=== PATIENT | male | born 1940 | race Caucasian/White ===

== ENCOUNTER 2018-09-03 15:29 | Outpatient (CLI) | payer MEDICARE ==
[~2018-09-03] VITALS: Ht 177.8 cm; Wt 91.2 kg
[2018-09-03 16:14] VITALS: BP 130/75
[2018-09-04] MEDS ORDERED: CARV6.252 PO (09:17)
[2018-09-04] MEDS ORDERED: ACET-2267 PO (09:17)
[2018-09-04] MEDS ORDERED: ASPI-586 PO (09:17)
[2018-09-04] MEDS ORDERED: METF-397 PO (09:17)
[2018-09-04] MEDS ORDERED: HYDR-3820 PO (09:17)
[2018-09-04] MEDS ORDERED: DIPH-639 PO (09:17)
== END 2018-09-03 16:15 | disposition home or self-care (01) ==
LOC: PREOP 15:29
PROVIDERS: ATTEND Urology
DX: Z01.818 Encounter for other preprocedural examination (principal)
CPT/HCPCS: 87081

== ENCOUNTER → 2018-09-03 | Outpatient (CLI) | payer MEDICARE ==
[~2018-09-03] MED LIST: ACET-2267 PO; ASPI-586 PO; CARV6.252 PO; DIPH-639 PO; HYDR-3820 PO; METF-397 PO
--- NOTE | 2018-09-03 13:47 | Diagnostic Imaging Report ---
PROCEDURE: CT urinary tract, rule out kidney stone. TECHNIQUE: Multiple contiguous axial images were obtained through the abdomen and pelvis without the use of intravenous contrast. Auto Exposure Controls were utilized during the CT exam to meet ALARA standards for radiation dose reduction. INDICATION: Renal stones. COMPARISON: No prior studies are available for comparison. FINDINGS: Imaging through the lung bases does show an area of parenchymal density adjacent to the descending aorta in the left lower lobe. This density measures 18 mm x 23 mm. Otherwise, the lungs are clear. No discrete liver mass is seen. Gallbladder is surgically absent. There is no biliary ductal dilatation identified. The pancreas and spleen are unremarkable. No adrenal mass is seen. There are numerous nonobstructing calculi throughout both kidneys. There also appear to be renal vascular calcifications present bilaterally. No significant hydronephrosis is seen. Right ureter is normal caliber. There does appear to be a calculus located in the distal left ureter just above the UVJ measuring 4 mm. No significant hydroureter is seen. No bladder calculi are detected. Aorta and iliac vessels are heavily calcified but nonaneurysmal. Bowel loops are normal caliber. There is no ascites. There is some diverticulosis of the sigmoid but no acute diverticulitis. The prostate is enlarged and contains some calcifications. Bony structures are nonacute. IMPRESSION: 1. Soft tissue density in the left lower lobe adjacent to the descending thoracic aorta. While this may represent an area of infiltrate/atelectasis, possibility of a mass cannot be entirely excluded. Close follow-up after a course of therapy would be useful to confirm stability or clearing. If this does not resolve, PET scan may be useful for further characterization. 2. Bilateral nonobstructing nephrolithiasis. In addition, there appears to be a 4 mm calculus in the distal left ureter just above the UVJ. No significant hydroureter is seen. 3. Uncomplicated diverticulosis. 4. Prostatomegaly. Dictated by: Dictated on workstation # [id number]
--- NOTE | 2018-09-03 13:51 | Diagnostic Imaging Report ---
INDICATION: Left-sided stone. TIME OF EXAM: 01:37 p.m. COMPARISON: No prior studies are available for comparison. FINDINGS: There are numerous calcific densities overlying both kidneys and are consistent with calculi. Calculus in the left pelvis paramidline location likely represents a distal left ureteric calculus noted on CT. Bowel gas pattern is nonobstructed. IMPRESSION: Bilateral renal calculi and distal left ureteral calculus. Dictated by: Dictated on workstation # [id number]
== END ==
LOC: RAD 13:18
PROVIDERS: ATTEND Urology
DX: N20.2 Calculus of kidney with calculus of ureter (principal); J98.4 Other disorders of lung; K57.30 Diverticulosis of large intestine without perforation or abscess without bleeding; N40.0 Benign prostatic hyperplasia without lower urinary tract symptoms; Z90.49 Acquired absence of other specified parts of digestive tract
CPT/HCPCS: 74018; 74176

== ENCOUNTER 2018-09-11 08:50 | Inpatient (IN) | payer MEDICARE ==
[2018-09-11] VITALS (12 sets, daily range): BP systolic 117–162; BP diastolic 66–93
[~2018-09-11] VITALS: Ht 177.8 cm; Wt 91.2 kg
--- NOTE | 2018-09-11 09:31 | Progress Note-Pre Operative ---
Pre-Operative Progress Note H&P Reviewed The H&P was reviewed, patient examined and no changes noted. Date Seen by Provider: Sep 11, 2018 Time Seen by Provider: 09:31 Date H&P Reviewed: Sep 11, 2018 Time H&P Reviewed: 09:31 Pre-Operative Diagnosis: LT URETERAL STONE YANET MORALES MD Sep 11, 2018 09:31
[2018-09-11] MEDS: LACTATED RINGERS 1,000 ML IV PRN ×2 (09:43→11:53)
--- NOTE | 2018-09-11 09:45 | Diagnostic Imaging Report ---
INDICATION: Preop for left ureteral stone lithotripsy. TIME OF EXAM: 9:22 AM Correlation is made with prior abdominal radiograph from 09/03/2018. FINDINGS: Calcific densities overlie both renal shadows. Calcific density in the medial aspect of the left pelvis is unchanged and may represent distal left ureteric calculus. Bowel gas pattern is unremarkable. IMPRESSION: Urinary tract calculi, as described. Overall appearance is similar to examination from 09/03/2018. Dictated by: Dictated on workstation # [id number]
[2018-09-11] MEDS ORDERED: cefTRIAXone FOR IV USE 1,000 MG in WATER (STERILE) FOR INJECTION 10 ML IV ONE (10:00)
[2018-09-11] MEDS ORDERED: CATHETER FLUSH 10 ML SYR IV PRN (10:15)
[2018-09-11] MEDS ORDERED: SEVOFLURANE (ULTANE) 15 ML INHAL SOLN ONE (11:11)
[2018-09-11] MEDS ORDERED: fentaNYL INJECTION 100 MCG/2 ML AMP ONE ×2 (11:11→12:10)
[2018-09-11] MEDS ORDERED: ONDANSETRON 4 MG/2 ML (SDV) Z0FRAN ONE (11:11)
[2018-09-11] MEDS ORDERED: LIDOCAINE PF 2% 5 ML (XYLOCAINE) VIAL ONE (11:11)
[2018-09-11] MEDS ORDERED: DEXAMETHASONE 10 MG/ML (DECADRON) 1 ML VIAL ONE (11:11)
[2018-09-11] MEDS ORDERED: proPOfol 200 MG/20 ML (DIPRIVAN) VIAL IV ONE (11:11)
[2018-09-11] MEDS ORDERED: GLYCOPYRROLATE 0.2 MG/ML (ROBINUL) 2 ML VIAL ONE (11:55)
[2018-09-11] MEDS ORDERED: NEOSTIGMINE 3 MG/3 ML VIAL ONE (11:55)
[2018-09-11] MEDS ORDERED: ESMOLOL 100 MG/10 ML (BREVIBLOC) VIAL ONE (12:18)
[2018-09-11] MEDS ORDERED: PHENYLEPHRINE 100 MCG/ML 10 ML (ANESTHESIA) SYR ONE (12:36)
--- NOTE | 2018-09-11 12:51 | Progress Note-Post Operative ---
Post-Operative Progess Note Surgeon (s)/Laborer Drying Department (s) Surgeon YANET MORALES MD Laborer Drying Department: NONE Pre-Operative Diagnosis LT DISTAL URETERAL STONE Post-Operative Diagnosis SAME Procedure & Operative Findings Date of Procedure 09/11/18 Procedure Performed/Findings CYSTOSCOPY, ATTEMPTED LT URETEROSCOPY, INSERTION OF LT URETERAL CATHETER, AND LT ESWL Anesthesia Type GENERAL Estimated Blood Loss Estimated blood loss (mL): NEGLIOGIBLE Specimens/Packing Specimens Removed NONE Packing: NONE YANET MORALES MD Sep 11, 2018 12:51
[2018-09-11] MEDS ORDERED: ROCURONIUM 10 MG/ML 5 ML SYRINGE IV ONE (13:04)
--- NOTE | 2018-09-11 13:05 | Discharge Inst-Urology ---
Discharge Inst-Urology Discharge Medications New, Converted, or Re-newed RX: RX on Chart Patient Instructions/Follow Up Plan Please make appointment to been seen in office in 3 weeks. KUB prior to it KUB on way home Post ESWL Instructions Increase oral fluids Diet and Activity as tolerated. If questions or concerns contact your physician Or seek help at emergency department. YANET MORALES MD Sep 11, 2018 13:05
[2018-09-11] MEDS ORDERED: morphine INJ 10 MG/ML 1ML (SYR OR VIAL) ONE (13:50)
[2018-09-11] MEDS ORDERED: morphine INJ 10 MG/ML 1ML (SYR OR VIAL) IVP ONE (14:00)
[2018-09-11] MEDS ORDERED: ONDANSETRON 4 MG/2 ML (SDV) Z0FRAN IVP PRN (14:00)
--- NOTE | 2018-09-11 14:40 | NUR ---
PETER NEGRON JR admitted to room 427-1, with an admitting diagnosis of POST OP AFIB, on 09/11/18 from PACU via STRETCHER, accompanied by FAMILY AND STAFF. PETER NEGRON JR introduced to surroundings, call light, bed controls, phone, TV, temperature control, lights, meal times, smoking policy, visitor policy, side rail policy, bathrooms and showers. Patient Rights given to patient in the handbook. PETER NEGRON JR verbalizes understanding that [facility] is not responsible for the loss or damage to any personal effects or valuables that are kept in the patients posession during their hospitalization. PETER NEGRON JR verbalizes understanding of Interdisciplinary Patient Education. Patient and/or family were informed about the Rapid Response Team and its purpose.
[2018-09-11] MEDS ORDERED: HYDROcodone/APAP 10 MG/325 MG (LORTAB) TAB PO ONE ×2 (15:06→15:15)
--- NOTE | 2018-09-11 15:23 | Consultation - Hospitalist ---
HPI History of Present Illness: HPI/Chief Complaint Pt is a 77yoCM with a PMH of metastatic lung cancer, HTN, and NIDDMII who was admitted postoperatively following cystoscopy and and ureteral catheter placement due to new onset a-fib. He reports significant pain at this time and defers most questions to his who is at bedside. She states that's he is having increased pain and normally takes hydrocodone 10/325 TID and has not had it today so is behind. She denies any other concerns right now besides pain management. He denies a history of a-fib but his did state that he has had issues with his heart after receiving cipro. Source: patient Date Seen 09/11/18 Attending Physician Ramana Gardner MD PCP Jesus Hoover MD Referring Physician Date of Admission Sep 11, 2018 at 13:43 Home Medications & Allergies Home Medications Reviewed patient Home Medication Reconciliation performed by pharmacy medication reconciliations blow mold technician and/or nursing. Patients Allergies have been reviewed. Allergies Allergies Coded Allergies celecoxib (Verified Allergy, Unknown, 09/03/18) ciprofloxacin (Verified Allergy, Unknown, Diarrhea, 09/03/18) milk (Verified Allergy, Unknown, Diarrhea, 09/03/18) Past Btjwkbe-Uqeebm-Ghkhcl Hx Past Med/Social Hx: Reviewed Nursing Past Med/Soc Hx Patient Social History Marrital Status: Alcohol Use: Denies Use Recreational Drug Use: No Smoking Status: Former Smoker Former Smoker, Quit: Nov 04, 2009 Recent Foreign Travel: No Contact w/other who traveled: No Recent Hopitalizations: No Recent Infectious Disease Expo: No Immunizations Up To Date Pediatric: No Date of Pneumonia Vaccine: Sep 04, 2011 Past Medical History Surgeries: Adenoidectomy, Coronary Stent, Gallbladder, Tonsillectomy port placement Cardiac: Heart Attack, Hypertension Neurological: Stroke Genitourinary: Kidney Stones Gastrointestinal: Chronic Constipation, Chronic Diarrhea Musculoskeletal: Arthritis Endocrine: Diabetes, Non-Insulin dep Cancer: Lung Did You Recieve Any Treatments: Yes What Type of Treatment Did You: Chemotherapy, Radiation History of Blood Disorders: No Family History Reviewed Nursing Family Hx No Pertinent Family Hx Review of Systems Constitutional: no symptoms reported EENTM: no symptoms reported Respiratory: no symptoms reported Cardiovascular: no symptoms reported Gastrointestinal: no symptoms reported Genitourinary: hematuria Musculoskeletal: back pain Skin: no symptoms reported Psychiatric/Neurological: No Symptoms Reported Physical Exam Physical Exam Vital Signs Vital Signs - First Documented 09/11/18 09/11/18 09:30 13:16 Temp 97.8 Pulse 70 Resp 18 B/P (MAP) 131/71 (91) Pulse Ox 95 O2 Delivery Room Air O2 Flow Rate 8 Capillary Refill : Less Than 3 Seconds Height, Weight, BMI Height: 5'10.00" Weight: 201lbs. 0.0oz. 91.643661ma; 28.8 BMI Method: General Appearance: No Apparent Distress, WD/WN Neck: Supple; No Thyromegaly Respiratory: Lungs Clear, No Respiratory Distress Cardiovascular: No Murmur, Irregularly Irregular Gastrointestinal: Normal Bowel Sounds, Non Tender, Soft, Abnormal Bowel Sounds Genital/Rectal: Other (catheter in place with red urine noted) Extremity: Normal Capillary Refill, No Calf Tenderness, No Pedal Edema Neurologic/Psychiatric: Alert, Oriented x3, Normal Mood/Affect Skin: Normal Color, Warm/Dry Results Results/Procedures Labs Patient resulted labs reviewed. Assessment/Plan Assessment and Plan Assess & Plan/Chief Complaint s/p left ureteral catheter placement, cystoscopy new onset a-fib Diagnosis/Problems Diagnosis/Problems (1) Bilateral renal stones Assessment & Plan: POD #[address] Gardner Hydrocodone and Fentanyl for pain prn (2) Afib Assessment & Plan: new onset Cardiology consulted, appreciate recs rate controlled currently Will resume home corege Needs anticoagulation when ok with Dr Gardner from postop standpoint (3) Essential (primary) hypertension Assessment & Plan: resume coreg (4) Non-insulin dependent type 2 diabetes mellitus Assessment & Plan: SSI ordered (5) Lung cancer Assessment & Plan: Follows with oncology at [facility] s/p chemo and radiation last radiation was 05/16, chemo ended well before that Qualifiers: Laterality: unspecified laterality Lung location: unspecified part of lung Qualified Codes: C34.90 - Malignant neoplasm of unspecified part of unspecified bronchus or lung AVA GAYTAN MD Sep 11, 2018 15:23
--- NOTE | 2018-09-11 15:30 | Anesthesia-General Post-Op ---
General Patient Condition Mental Status/LOC: Same as Preop Cardiovascular: Satisfactory Nausea/Vomiting: Absent Respiratory: Satisfactory Pain: Controlled Complications: Absent Post Op Complications Complications None Follow Up Care/Instructions Patient Instructions None needed. Anesthesia/Patient Condition Patient Condition Patient is doing well, no complaints, stable vital signs, no apparent adverse anesthesia problems. No complications reported per nursing. DUGLAS RICHEY CRNA Sep 11, 2018 15:30
[2018-09-11] MEDS: inSUlin ASPART (NovoLOG) 1 UNIT/0.01 ML (CHARGE PER UNIT) SC SCH ×2 (16:10→21:05)
[2018-09-11] MEDS: LACTOBACILLUS ACIDOPHILUS (PROBIOTIC) CAPSULE PO SCH (16:12)
[2018-09-11] MEDS: fentaNYL INJECTION 100 MCG/2 ML AMP IVP PRN ×3 (16:12→21:10)
--- NOTE | 2018-09-11 18:36 | Consultation-Cardiology ---
HPI-Cardiology Cardiology Consultation: Date of Consultation 09/11/18 Date of Admission Attending Physician Ramana Gardner MD Admitting Physician Jesus Hoover MD Consulting Physician [place] LECHUGA MD HPI: Time Seen by a Provider: 18:36 Chief Complaint: atrial fibrillation this is a 77-year-old gentleman who is a patient of Dr. Gardner. The patient has history of metastatic lung cancer, hypertension and diabetes. He was admitted for cystoscopy however was found to be in new onset atrial fibrillation. History is having hematuria. I discussed at length with him about atrial fib rillation management including stroke prevention. Review of Systems-Cardiology Review of Systems Constitutional: As described under HPI; No As described under HPI, No no symptoms reported, No chills, No fever, No lightheadedness Eyes: No As described under HPI, No no symptoms reported, No blindness, No blurred vision, No contact lenses, No drainage, No decreased acuity, No foreign body sensation, No pain, No vision change Ears/Nose/Throat: No As described under HPI, No no symptoms reported, No chronic hearing loss, No ear discharge, No ear pain, No nasal drainage, No ulcerations Respiratory: No no symptoms reported; As described under HPI; No As described under HPI, No cough, No orthopnea, No shortness of breath, No SOB with excertion Cardiovascular: No no symptoms reported; As described under HPI; No As described under HPI, No chest pain, No edema; irregular heart rate; No lig htheadedness, No palpitations Gastrointestinal: No no symptoms reported, No As described under HPI, No abd omen distended, No abdominal pain, No blood streaked bowels, No constipation, No diarrhea, No nausea, No vomiting, No stool coloration changes Genitourinary: As described under HPI; No burning, No dysuria, No discharge, No frequency, No flank pain, No hematuria, No urgency Skin: No rash, No skin related problems, No ulcerations Psychiatric/Neurological: No anxiety, No depression, No seizure, No focal weakness, No syncope Hematologic: No bleeding abnormalities MEM-Dmenma-Zgqecl Hx Patient Social History Marrital Status: Alcohol Use: Denies Use Recreational Drug Use: No Smoking Status: Former Smoker Recent Foreign Travel: No Recent Infectious Disease Expo: No Immunizations Up To Date Date of Pneumonia Vaccine: Sep 04, 2011 Past Medical History PMH As described under Assessment. Allergies and Home Medications Allergies Coded Allergies: celecoxib (Verified Allergy, Unknown, 09/03/18) ciprofloxacin (Verified Allergy, Unknown, Diarrhea, 09/03/18) milk (Verified Allergy, Unknown, Diarrhea, 09/03/18) Home Medications Acetaminophen 500 Mg Tablet, 1,000 MG PO DAILY, (Reported) TAKE 2 (500MG) TAB Carvedilol 6.25 Mg Tablet, 6.25 MG PO DAILY, (Reported) Diphenhydramine HCl 25 Mg Capsule, 25 MG PO HS, (Reported) Hydrocodone/Acetaminophen 1 Each Tablet, 1 TAB PO TID, (Reported) Metformin HCl 500 Mg Tablet, 500 MG PO DAILY, (Reported) Patient Home Medication List Home Medication List Reviewed: Yes Physical Exam-Cardiology Physical Exam Vital Signs/I&O 09/12/18 09/12/18 09/12/18 09/12/18 07:00 08:00 08:00 12:00 Temp 99.0 98.9 Pulse 85 98 93 Resp 20 20 B/P (MAP) 150/63 (92) 136/75 (95) Pulse Ox 95 94 O2 Delivery Nasal Cannula Nasal Cannula Nasal Cannula O2 Flow Rate 1.00 2.00 2.00 09/12/18 09/12/18 12:44 16:00 Temp 99.0 Pulse 93 80 Resp 20 B/P (MAP) 134/68 (90) Pulse Ox 92 O2 Delivery Room Air 09/12/18 00:00 Intake Total 240 ml Output Total 1975 ml Balance -1735 ml Capillary Refill : Less Than 3 Seconds Constitutional: appears stated age; No apparent distress; well-developed, well- nourished HEENT: PERRL; No normal ENT inspection, No TMs normal, No pharynx normal, No scleral icterus (R), No scleral icterus (L), No pale conjunctivae (R), No pale conjunctivae (L), No photophobia, No TM abnormal (R), No TM abnormal (L), No pharyngeal erythema, No tonsillar exudate, No other, No discharge, No EOMI; hearing is well preserved; No hard of hearing; oral hygience is good; No ulceration, No xanthelasmas are seen Neck: No carotid bruit; carotid pulses are 2 + bilaterally Respiratory: No accessory muscle use, No respiratory distress, No chest tender, No chest expansion is symmetric; chest is bilaterally symmetric; No lungs clear to percussion; lungs clear to auscultation; No crackles, No rhonchi, No rales, No stridor, No wheezing, No pleural rub, No other Cardiovascular: No regular rate-rhythm; irregularly irregular; No extra beats, No parasternal heave is noted, No JVD, No edema, No bradycardia, No tachycardia, No point of maximal impulse, No cardiac thrills are palpable; S1 and S2; No gallop/S3, No gallop/S4, No diastolic murmur, No systolic murmur, No friction rub, No click, No other Gastrointestinal: No tender, No soft, No round, No distended, No pulsatile mass, No organomegaly, No guarding, No rebound, No tenderness, No hernia, No mass, No audible bowel sounds, No abnormal bowel sounds, No abdominal bruits, No spleenomegaly, No other Rectal: deferred Extremities: No normal range of motion, No non-tender, No normal inspection, No pedal edema, No calf tenderness, No normal capillary refill, No pelvis stable, No calf tenderness, No inflammation, No pedal edema, No slow capillary refill, No swelling, No other, No abrasion, No clubbing, No cyanosis, No ecchymosis, No laceration, No no lower extremity edema bilateral, No significant edema, No tenderness, No wound Neurologic/Psychiatric: no motor/sensory deficits, alert, normal mood/affect, oriented x 3, power is 5/5 both on sides Skin: No rash, No ulcerations Data Review Labs Laboratory Tests 09/11/18 20:43: Glucometer 99 09/12/18 05:53: Glucometer 131H 09/12/18 08:20: White Blood Count 6.8, Red Blood Count 4.11L, Hemoglobin 11.8L, Hematocrit 37L, Mean Corpuscular Volume 90, Mean Corpuscular Hemoglobin 29, Mean Corpuscular Hemoglobin Concent 32, Red Cell Distribution Width 13.9, Platelet Count 154, Mean Platelet Volume 8.7, Neutrophils (%) (Auto) 75, Lymphocytes (%) (Auto) 14, Monocytes (%) (Auto) 10, Eosinophils (%) (Auto) 1, Basophils (%) (Auto) 0, Neutrophils # (Auto) 5.1, Lymphocytes # (Auto) 1.0, Monocytes # (Auto) 0.7, Eosinophils # (Auto) 0.1, Basophils # (Auto) 0.0, Sodium Level 139, Potassium Level 3.9, Chloride Level 103, Carbon Dioxide Level 27, Anion Gap 9, Blood Urea Nitrogen 14, Creatinine 1.25, Estimat Glomerular Filtration Rate 56, BUN/Creatinine Ratio 11, Glucose Level 145H, Calcium Level 8.6 09/12/18 11:29: Glucometer 160H 09/12/18 16:00: Glucometer 142H ECG Impression ECG Initial ECG Impression: Atrial Fibrillation A/P-Cardiology Assessment/Admission Diagnosis atrial fibrillation with rapid ventricular rate, Hypertension, Diabetes, Kidney stone. Plan patient has an CHADSVASC off at least 4, therefore oral anticoagulation is superior for stroke prevention. However the patient just had cystoscopy and hematuria. Oral anticoagulation can only be started after hematuria has reso lved for 48 hours. Patient will follow with his outpatient imaging specialist. continue carvedilol for rate control and hypertension. Continue outpatient medications for diabetes. Thank you for your consultation. Please call me if you have any questions. Arnaldo Lechuga MD, FACP, FACC, FSCAI, FHRS, CCDS Interventional Cardiology Cardiac Electrophysiology Vascular Medicine and Endovascular Interventions Clinical Quality Measures DVT/VTE Risk/Contraindication: Risk Factor Score Per Nursin RFS Level Per Nursing on Admit: 3=High [place] LECHUGA MD Sep 11, 2018 18:36
[2018-09-12] VITALS: BP 116/62
[2018-09-12] MEDS: fentaNYL INJECTION 100 MCG/2 ML AMP IVP PRN ×4 (00:06→08:47)
--- NOTE | 2018-09-12 01:10 | NUR ---
DR. Gardner notified of pt's uncontrolled pain and output since 2199 of only 100 mls. New orders rec to start LR at 100 mls/hr; Pyridium 200 mg po TID, Lortab 10/325 mg po 1 tab TID; and B&O supp 30-60mg q 4 hr PRN spasms. Will continue to monitor.
[2018-09-12] MEDS ORDERED: PHENAZOPYRIDINE 100 MG (PYRIDIUM) TABLET ONE (01:11)
[2018-09-12] MEDS ORDERED: HYDROcodone/APAP 10 MG/325 MG (LORTAB) TAB PO ONE (01:19)
[2018-09-12] MEDS: LACTATED RINGERS 1,000 ML IV SCH ×2 (01:22→11:31)
[2018-09-12] MEDS: PHENAZOPYRIDINE 100 MG (PYRIDIUM) TABLET PO SCH ×4 (01:22→17:30)
[2018-09-12] MEDS: BELLADONNA ALK/OPIUM (B & O) 30 MG SUPP PR PRN ×2 (01:23→05:46)
[2018-09-12] MEDS: HYDROcodone/APAP 10 MG/325 MG (LORTAB) TAB PO SCH ×3 (01:25→13:11)
[2018-09-12 04:22] VITALS: BP 157/69
[2018-09-12] MEDS: LACTOBACILLUS ACIDOPHILUS (PROBIOTIC) CAPSULE PO SCH ×3 (05:47→17:30)
[2018-09-12] MEDS: inSUlin ASPART (NovoLOG) 1 UNIT/0.01 ML (CHARGE PER UNIT) SC SCH ×3 (05:53→16:41)
[2018-09-12 08:00] VITALS: BP 150/63
[2018-09-12 08:26] LABS: BASOPHILS % (AUTO) 0 % (0-10); EOSINOPHILS # (AUTO) 0.1 10^3/uL (0.0-0.3); EOSINOPHILS % (AUTO) 1 % (0-10); HEMATOCRIT 37 % (40-54); HEMOGLOBIN 11.8 G/DL (13.3-17.7); LYMPHOCYTES % (AUTO) 14 % (12-44); MEAN CORPUSCULAR HEMOGLOBIN 29 PG (25-34); MEAN CORPUSCULAR HGB CONC 32 G/DL (32-36); MEAN CORPUSCULAR VOLUME 90 FL (80-99); MEAN PLATELET VOLUME 8.7 FL (7.4-10.4); MONOCYTES # (AUTO) 0.7 X 10^3 (0.0-1.0); MONOCYTES % (AUTO) 10 % (0-12); NEUTROPHILS # (AUTO) 5.1 X 10^3 (1.8-7.8); NEUTROPHILS % (AUTO) 75 % (42-75); PLATELET COUNT 154 10^3/uL (130-400); RED CELL DISTRIBUTION WIDTH 13.9 % (10.0-14.5); WHITE BLOOD COUNT 6.8 10^3/uL (4.3-11.0)
[2018-09-12 08:49] LABS: CALCIUM 8.6 MG/DL (8.5-10.1); CREATININE SERUM 1.25 MG/DL (0.60-1.30); POTASSIUM 3.9 MMOL/L (3.6-5.0)
--- NOTE | 2018-09-12 11:09 | Progress Note - Urology ---
Progress Note-Urology Progress Notes/Assess & Plan Progress/Assessment & Plan DOING AND FEELING WELL. PAIN GONE POST REMOVAL CASTANEDA. URINE TEA COLOR. OBSERVE TILL THIS EVENING AND THEN DECIDE ON DISCHARGE AND STARTING ANTICOAGULATION. Final Diagnosis LT URETERAL STONE AND ATRIAL FIBRILLATION YANET MORALES MD Sep 12, 2018 11:08
[2018-09-12 12:00] VITALS: BP 136/75
[2018-09-12] MEDS ORDERED: ONDANSETRON 4 MG (ZOFRAN) ORAL DISSOLVE TAB PO PRN (15:45)
[2018-09-12 16:00] VITALS: BP 134/68
--- NOTE | 2018-09-12 16:50 | Cardiology Progress Note ---
Cardiology SOAP Progress Note Subjective: no cardiac symptoms. Objective: I&O/Vital Signs 09/12/18 09/12/18 09/12/18 09/12/18 07:00 08:00 08:00 12:00 Temp 99.0 98.9 Pulse 85 98 93 Resp 20 20 B/P (MAP) 150/63 (92) 136/75 (95) Pulse Ox 95 94 O2 Delivery Nasal Cannula Nasal Cannula Nasal Cannula O2 Flow Rate 1.00 2.00 2.00 09/12/18 09/12/18 12:44 16:00 Temp 99.0 Pulse 93 80 Resp 20 B/P (MAP) 134/68 (90) Pulse Ox 92 O2 Delivery Room Air 09/12/18 00:00 Intake Total 240 ml Output Total 1975 ml Balance -1735 ml Weight (Pounds): 201 Weight (Ounces): 0.0 Weight (Calculated Kilograms): 91.228231 Constitutional: appears stated age; No apparent distress; well-developed, well- nourished Respiratory: No accessory muscle use, No respiratory distress, No chest tender, No chest expansion is symmetric; chest is bilaterally symmetric; No lungs clear to percussion; lungs clear to auscultation; No crackles, No rhonchi, No rales, No stridor, No wheezing, No pleural rub, No other Cardiovascular: No regular rate-rhythm; irregularly irregular; No extra beats, No parasternal heave is noted, No JVD, No edema, No bradycardia, No tachycardia, No point of maximal impulse, No cardiac thrills are palpable; S1 and S2; No gallop/S3, No gallop/S4, No diastolic murmur, No systolic murmur, No friction rub, No click, No other Gastrointestional: No tender, No soft, No round, No distended, No pulsatile mass, No organomegaly, No guarding, No rebound, No tenderness, No hernia, No mass, No audible bowel sounds, No abnormal bowel sounds, No abdominal bruits, No spleenomegaly, No other Extremities: No normal range of motion, No non-tender, No normal inspection, No pedal edema, No calf tenderness, No normal capillary refill, No pelvis stable, No calf tenderness, No inflammation, No pedal edema, No slow capillary refill, No swelling, No other, No abrasion, No clubbing, No cyanosis, No ecchymosis, No laceration, No no lower extremity edema bilateral, No significant edema, No tenderness, No wound Neurologic/Psychiatric: no motor/sensory deficits, alert, normal mood/affect, oriented x 3, power is 5/5 both on sides Skin: No rash, No ulcerations Results/Procedures: Labs Laboratory Tests 09/11/18 20:43: Glucometer 99 09/12/18 05:53: Glucometer 131H 09/12/18 08:20: White Blood Count 6.8, Red Blood Count 4.11L, Hemoglobin 11.8L, Hematocrit 37L, Mean Corpuscular Volume 90, Mean Corpuscular Hemoglobin 29, Mean Corpuscular Hemoglobin Concent 32, Red Cell Distribution Width 13.9, Platelet Count 154, Mean Platelet Volume 8.7, Neutrophils (%) (Auto) 75, Lymphocytes (%) (Auto) 14, Monocytes (%) (Auto) 10, Eosinophils (%) (Auto) 1, Basophils (%) (Auto) 0, Neutrophils # (Auto) 5.1, Lymphocytes # (Auto) 1.0, Monocytes # (Auto) 0.7, Eosinophils # (Auto) 0.1, Basophils # (Auto) 0.0, Sodium Level 139, Potassium Level 3.9, Chloride Level 103, Carbon Dioxide Level 27, Anion Gap 9, Blood Urea Nitrogen 14, Creatinine 1.25, Estimat Glomerular Filtration Rate 56, BUN/Creatinine Ratio 11, Glucose Level 145H, Calcium Level 8.6 09/12/18 11:29: Glucometer 160H 09/12/18 16:00: Glucometer 142H A/P: Assessment/Dx: atrial fibrillation with rapid ventricular rate, Hypertension, Diabetes, Kidney stone. Plan: patient has an CHADSVASC off at least 4, therefore oral anticoagulation is sup erior for stroke prevention. However the patient just had cystoscopy and hematuria. Oral anticoagulation can only be started after hematuria has resolved for 48 hours. Patient will follow with his outpatient forest fire fighter. continue carvedilol for rate control and hypertension. Continue outpatient medications for diabetes. still has some hematuria. Thank you for your consultation. Please call me if you have any questions. Arnaldo Lechuga MD, FACP, FACC, FSCAI, FHRS, CCDS Interventional Cardiology Cardiac Electrophysiology Vascular Medicine and Endovascular Interventions [place] LECHUGA MD Sep 12, 2018 16:50
[2018-09-13 08:00] VITALS: BP 144/71
--- NOTE | 2018-09-13 12:24 | OPERATIVE REPORT ---
DATE OF SERVICE: 09/11/2018 PREOPERATIVE DIAGNOSIS: Left distal ureteral stone. POSTOPERATIVE DIAGNOSIS: Left distal ureteral stone. OPERATION PERFORMED: Cystoscopy, attempted left ureteroscopy and insertion of left ureteral catheter and left ESWL. SURGEON: Ramana Morales MD. ANESTHESIA: General. COMPLICATIONS: None. DESCRIPTION OF PROCEDURE: Under satisfactory general anesthesia, the patient in lithotomy position on the cystoscopy table, genitalia were prepped and draped in the usual sterile fashion. Cystoscope was introduced under vision. The anterior urethra was normal. The prostate was not enlarged; however, there was a high riding bar causing some obstruction. Bladder was entered and revealed some trabeculations. Ureteric orifices were normal with a slow efflux on the left side. Using the foroblique lens, I dilated the left ureteral orifice intramural portion and tried to pass a 6.9-[place] semirigid ureteroscope; however, the lens was not clear at all and we could not use it. We brought another ureteroscope and same problem. They were both autoclaved today in the rapid autoclave section, so we discontinued that, went back with the cystoscope, inserted a left ureteral catheter, passed it all the way up to the left renal pelvis, obtained urine, then inserted a 16-[place] catheter, taped and connected together, moved the patient to the ESWL table supine. The stone was easily localized with the presence of the catheter there, used kV of 7 and 2500 shocks, completely fragmented the stone that was not visualized anymore. The patient received 40 mg of Lasix and 30 mg of Toradol IV at the end of the procedure. He tolerated the procedure and anesthesia well and was sent to the recovery room in stable condition. Job ID: [id number] DocumentID: [id number] Dictated Date: 09/11/2018 13:10:20 Consular Officer Date: 09/11/2018 20:36:03 Dictated By: RAMANA MORALES MD
--- NOTE | 2018-09-16 11:23 | Physician Query-Final Dx ---
KHANG ALVAREZ 09/16/18 1123: Final Diagnosis Give Final Diagnosis Please give Final Diagnosis YANET MORALES MD 09/17/18 0700: Final Diagnosis Give Final Diagnosis LT URETERAL STONE KHANG ALVAREZ Sep 16, 2018 11:23 YANET MORALES MD Sep 17, 2018 07:00
== END 2018-09-12 18:45 | disposition home or self-care (01) | DRG 309 ==
LOC: SDC 08:50 → 4TH 13:43 → SDC 14:17 → 4TH 09-12 15:17
PROVIDERS: ADMIT Urology; ATTEND Urology
PROC: 0TF7XZZ Fragmentation in Left Ureter, External Approach (ICD-10-PCS; principal; 2018-09-11 11:26)
PROC: 0T9780Z Drainage of Left Ureter with Drainage Device, Via Natural or Artificial Opening Endoscopic (ICD-10-PCS; 2018-09-11 11:26)
DX: I48.91 Unspecified atrial fibrillation (principal); N20.2 Calculus of kidney with calculus of ureter; R31.9 Hematuria, unspecified; C34.92 Malignant neoplasm of unspecified part of left bronchus or lung; E11.9 Type 2 diabetes mellitus without complications; I25.10 Atherosclerotic heart disease of native coronary artery without angina pectoris; I10 Essential (primary) hypertension; M19.90 Unspecified osteoarthritis, unspecified site; Z87.891 Personal history of nicotine dependence; Z95.5 Presence of coronary angioplasty implant and graft; I25.2 Old myocardial infarction; Z79.84 Long term (current) use of oral hypoglycemic drugs
CPT/HCPCS: 36415; 74018; 80048; 82962; 84484; 85025; 93005

== ENCOUNTER → 2018-09-26 | Outpatient (CLI) | payer MEDICARE ==
--- NOTE | 2018-09-26 15:14 | Diagnostic Imaging Report ---
INDICATION: Left ureteral stone, status post lithotripsy. TIME OF EXAM: 3:03 PM COMPARISON: Correlation is made with prior abdominal radiograph from 09/11/2018. FINDINGS: Calcific densities overlying both renal shadows are again noted. More medially located left pelvic calcification is not well seen on today's study. Bowel gas pattern is unremarkable. IMPRESSION: Bilateral nephrolithiasis. Previously noted probable distal left ureteric calculus is not appreciated on today's study. Dictated by: Dictated on workstation # [id number]
== END ==
LOC: RAD 14:42
PROVIDERS: ATTEND Urology
DX: N20.2 Calculus of kidney with calculus of ureter (principal); Z98.890 Other specified postprocedural states
CPT/HCPCS: 74018